=== PATIENT | male | born 1965 | race Hispanic/Latino ===

== ENCOUNTER 2018-07-08 06:17 | Day surgery (SDC) | payer BC ==
[2018-07-05 16:15] LABS: APPEARANCE,URINE Cloudy (CLEAR); BASOPHILS % (AUTO) 0.7 % (0.0-5.0); BILIRUBIN,URINE Negative (NEGATIVE); COLOR,URINE Yellow (YELLOW); EOSINOPHILS % (AUTO) 1.9 % (0.0-8.0); GLUCOSE, URINE (UA) Negative (NEGATIVE); HEMATOCRIT 40.7 % (42-54); KETONES,URINE Trace mg/dL (NEGATIVE); LEUKOCYTE ESTERASE ,URINE Negative (NEGATIVE); LYMPHOCYTES % (AUTO) 24.1 % (21.0-51.0); MEAN CORPUSCULAR HEMOGLOBIN 30.8 pg (27.0-33.0); MEAN CORPUSCULAR HGB CONC 34.3 g/dL (32.0-36.0); MEAN CORPUSCULAR VOLUME 89.6 fL (79-99); MONOCYTES % (AUTO) 7.5 % (3.0-13.0); NEUTROPHILS % (AUTO) 65.8 % (40.0-77.0); NITRATE,URINE Negative (NEGATIVE); OCCULT BLOOD,URINE Moderate (NEGATIVE); PH,URINE 5.5 (5.0-8.0); PLATELET COUNT (AUTO) 267 K/uL (130-400); PROTEIN,URINE Negative (NEGATIVE); RED BLOOD CELL COUNT(AUTO) 4.54 MIL/uL (4.50-6.20); RED CELL DISTRIBUTION WIDTH 13.5 % (11.0-15.5); WHITE BLOOD COUNT (AUTO) 7.9 K/uL (4.8-10.8)
[2018-07-05 16:25] VITALS: BP 154/89
[2018-07-05 16:26] LABS: COARSE GRANULAR CASTS,URINE 0-2 /LPF (None Seen); CREATININE 1.1 mg/dL (0.5-1.5); MUCUS,URINE Moderate LPF (None Seen); POTASSIUM 4.4 mmol/L (3.5-5.1)
[2018-07-05 16:27] LABS: INR 1.01 (0.85-1.15); PROTHROMBIN TIME 10.6 SEC (9.6-11.6)
[2018-07-05 16:28] LABS: BACTERIA,URINE Few /HPF (None Seen); WBC,URINE 0-1 /HPF (0-1)
[2018-07-08] VITALS (13 sets, daily range): BP systolic 116–151; BP diastolic 65–87
[~2018-07-08] VITALS: Ht 185.4 cm; Wt 125.6 kg
[2018-07-08] MEDS: GENTAMICIN 80 MG/NS 100 ML PB 100 ML IV SCH ×2 (06:45→08:15)
[2018-07-08] MEDS ORDERED: MAGNESIUM CITRATE 296 ML SOLUTION PO SCH (06:45)
[2018-07-08] MEDS: CEFAZOLIN SODIUM 1 GM VIAL IVP SCH ×2 (06:45→08:30)
[2018-07-08] MEDS ORDERED: LACTATED RINGERS 1000ML 1,000 ML IV ONE (06:46)
[2018-07-08] MEDS ORDERED: ONDANSETRON HCL 4 MG/2 ML VIAL ONE (08:03)
[2018-07-08] MEDS ORDERED: LIDOCAINE HCL MPF 1% 5ML VIAL ONE (08:03)
[2018-07-08] MEDS ORDERED: FENTANYL CITRATE PF 50 MCG/1 ML 2ML VIAL ONE (08:04)
[2018-07-08] MEDS ORDERED: DEXAMETHASONE SOD PHOSPHATE 4 MG/ML 1ML VIAL ONE (08:04)
[2018-07-08] MEDS ORDERED: PROPOFOL 10 MG/ML 20ML VIAL IV ONE ×2 (08:04→08:10)
[2018-07-08] MEDS ORDERED: ROCURONIUM 10MG/1ML SYR 10 MG/ML ML ONE (08:34)
[2018-07-08] MEDS ORDERED: NEOSTIGMINE 5MG/5ML SYR IV ONE (09:03)
[2018-07-08] MEDS ORDERED: GLYCOPYRROLATE 1 MG/5 ML SYRINGE ONE (09:03)
[2018-07-08] MEDS ORDERED: SODIUM CHLORIDE 0.9% 10 ML VIAL ONE (09:10)
[2018-07-08] MEDS ORDERED: PHENYLEPHRINE HCL 10 MG/ML 1ML VIAL IV ONE (09:10)
== END 2018-07-08 11:25 | disposition home or self-care (01) ==
LOC: DAH 06:17 → EDSEX 07-09 15:00
PROVIDERS: ATTEND Urology
DX: N20.0 Calculus of kidney (principal); I10 Essential (primary) hypertension; Z90.49 Acquired absence of other specified parts of digestive tract; Z88.8 Allergy status to other drugs, medicaments and biological substances; Z98.890 Other specified postprocedural states; E66.01 Morbid (severe) obesity due to excess calories; I45.19 Other right bundle-branch block
CPT/HCPCS: 36415; 50590; 74018; 80048; 81001; 85025; 85610; 87088; 93005; A4600; J0690; J1100; J1580; J2370; J2405; J2704 ×2; J2710; J3010; J3490 ×2; J7120